=== PATIENT | female | born 1990 | race Caucasian/White ===

== ENCOUNTER 2020-07-31 10:30 | Outpatient (CLI) | payer BC, SELFPAY ==
[2020-07-31 11:05] LABS: Hematocrit 39.2 % (37.0-47.0); Hemoglobin 13.6 g/dL (12.0-15.0); Mean Corpuscular HGB Conc 34.7 g/dl (32-36); Mean Corpuscular Hemoglobin 32.3 pg (26-34); Mean Corpuscular Volume 93.1 fl (80-100); Mean Platelet Volume 11.4 fl (7.4-10.4); Platelet Count Result 156 k/mm3 (150-375); Red Blood Count 4.21 M/mm3 (4.2-5.4); Red Cell Distribution Width 13.4 % (11.5-14.5); White Blood Count 7.3 K/mm3 (4.5-10.0)
[2020-08-01 08:24] LABS: Rapid Plasma Reagin Non-Reactive (NonReactive)
== END 2020-07-31 10:31 | disposition home or self-care (01) ==
PROVIDERS: Visit Provider Obstetrics & Gynecology
DX: Z01.812 Encounter for preprocedural laboratory examination (principal)
CPT/HCPCS: 36415; 85027; 86592; 86850; 86900; 86901

== ENCOUNTER 2020-08-01 09:50 | Inpatient (IN) | payer BC, SELFPAY ==
[2020-08-01] VITALS (36 sets, daily range): BP systolic 105–131; BP diastolic 65–89; PULSE 67–92; RESP 16–18; TEMP 36.3–36.7; O2SAT 97–100; BMI 31.4
[2020-08-01] MEDS: LACTATED RINGERS 1,000 ML 125 ML IV CONT ×3 (10:37→12:45)
--- NOTE | 2020-08-01 11:11 | P.PNAN_ITS ---
Anes - Initial Pre Proc Eval Procedure: Operation Date: 08/01/20 12:00 Proposed Procedures p Repeat Section - Darryl Birmingham MD Date/Time: 08/01/20 11:11 Surgeon: Darryl Birmingham MD Pre Op Diagnosis: C/S Patient Data Age: 29 Gender: F Height: Weight: Last Vital Signs Pulse 90 08/01/20 11:00 BP 119/72 08/01/20 11:00 Allergies Allergy/AdvReac Type Severity Reaction Status Date / Time No Known Allergies Allergy Verified 07/08/20 12:40 Home Medications Medication Instructions Recorded Confirmed Type prenat.vits,toney,hxi-hzie-oryif 1 tablet PO DAILY 07/08/20 07/08/20 History [ #2] Patient hx anesthesia problems: none Family hx anesthesia problems: none [facility] Family History Family History (Updated 07/08/20 @ 12:42 by Patsy Herrera RN) Father Hypertension Social History Social History Substance use: never Spiritual care concerns: No Anes - Eval Final PreProcedure Day of Procedure 08/01/20 11:11 Patient weight: overweight Heart: regular rate and rhythm Lungs: clear to auscultation and normal air movement Airway: Mallampati scale class II Neurological: alert and oriented Last oral intake: >/= 8 hours ASA classification: II Emergent: no Anesthetic plan: proceed Anesthesia type and monitoring: regional spinal Informed Consent: The patient's anesthetic plan and its attendant risks and benefits were discussed with the patient/family/POA. Questions were solicited and answers provided to the satisfaction of the patient/family/POA.
--- NOTE | 2020-08-01 11:32 | PM.IMHP ---
H&P: HPI History of Present Illness Date/Time: 08/01/20 11:32 this patient is a 29-year-old 1 at 39 weeks gestation who presents for delivery due to an in the breech position. Review agreed to perform delivery. She understands the risks. She understands that injuries may occur that result in hospitalization, more surgery, severe illness. She understands risk of hemorrhage infection. The patient denies any nausea, vomiting, fever, chills. She denies any chest pain or shortness of breath. She denies any contractions, loss of fluid or vaginal bleeding. Chief Complaint: Breech Review of Systems Constitutional: Constitutional: Reports no additional constitutional complaints, Denies fatigue, Denies headache(s), Denies lethargy and Denies weakness Eyes: Eyes: Reports no additional eye complaints, Denies blurry vision and Denies photophobia ENT: Reports as per HPI, Denies headache(s) and Denies neck pain Cardiovascular: Cardiovascular: Denies chest pain, Denies diaphoresis, Denies leg edema, Denies palpitations and Denies dyspnea Respiratory: Respiratory: Denies hemoptysis, Denies dyspnea and Denies wheezing Gastrointestinal: Gastrointestinal: Denies abdominal pain, Denies melena, Denies bloating, Denies hematochezia, Denies nausea and Denies vomiting Genitourinary: Genitourinary: Reports no additional female genitourinary complaints Musculoskeletal: Musculoskeletal: Denies joint swelling, Denies neck pain, Denies numbness and Denies stiffness Neurologic: Denies Abnormal speech present, Denies confusion, Denies headache(s), Denies numbness and Denies weakness Psychiatric: Psychiatric: Denies anxiety, Denies confusion, Denies depression, Denies homicidal ideation and Denies suicidal ideation Endocrine: Endocrine: Denies fatigue and Denies palpitations Allergic/Immunologic: Allergic/Immunologic: Denies wheezing [facility] Family History Family History (Updated 07/08/20 @ 12:42 by Patsy Herrera RN) Father Hypertension Social History Social History Substance use: never Spiritual care concerns: No Meds Home Medications and Allergies Home Medications Medication Instructions Recorded Confirmed Type prenat.vits,toney,duk-nyxk-iefak 1 tablet PO DAILY 07/08/20 07/08/20 History [ #2] Allergies Allergy/AdvReac Type Severity Reaction Status Date / Time No Known Allergies Allergy Verified 07/08/20 12:40 Vital Signs Vital Signs - 24 hr 08/01/20 10:24 08/01/20 10:30 08/01/20 10:45 Pulse Rate 84 92 75 Blood Pressure 121/80 114/76 118/74 08/01/20 11:00 08/01/20 11:15 08/01/20 11:30 Pulse Rate 90 80 75 Blood Pressure 119/72 131/85 125/89 Exam Const: General: healthy appearing, comfortable and no acute distress; No confusion Orientation/consciousness: No confusion Eyes: Direct Ophthalmoscopy: No photophobia Resp: Auscultation: clear to auscultation bilaterally, no rales, no rhonchi and no wheezes Cardio: Rate: regular rate Heart sounds: no click, no murmurs and no rubs GI: Inspection: non-distended GI Palp: No abdominal tenderness Auscultation: normal bowel sounds Neuro: General: No confusion Speech: No Abnormal speech present Extrem: General: normal to inspection, no pedal edema and no calf tenderness Assessment and Plan Assessment and plan (1) Term : Code(s): Z34.90 - Encounter for supervision of normal , unspecified, unspecified trimester Status: Acute (2) Breech presentation: Code(s): O32.1XX0 - Maternal care for breech presentation, not applicable or unspecified Status: Acute Assessment and Plan: This patient is a 29-year-old primipara at term with a breech . We have agreed to perform delivery. She understands the risks, benefits, and alternatives. She has completed the informed consent process and is ready to proceed.
--- NOTE | 2020-08-01 11:35 | WPDHPUPDATE1 ---
History and Physical Update Update Date/Time: 08/01/20 11:35 History and Physical has been reviewed, including an updated exam of the patient. There are NO changes in the patient's condition. Risks, benefits, and alternatives have been discussed and questions answered. Patient agrees to proceed with procedure.
[2020-08-01] MEDS: ceFAZolin 2 GM/D5W 50 ML 2 GM/50 ML BAG IVPB (12:30)
--- NOTE | 2020-08-01 13:22 | W.PM.PROC2 ---
Procedure Note - Detailed Date of Procedure 08/01/20 Pre-op Diagnosis Breech, Term Post-op Diagnosis same Procedure Performed Low-transverse section Surgeon Darryl Birmingham MD Anesthesia spinal Findings Normal gestational maternal anatomy, average size infant - breech, normal Apgars. Description of Procedure The patient was taken the operating room. She was prepped and draped in dorsal supine position with a leftward tilt. This was done after spinal anesthetic was applied. A low-transverse skin incision was made and carried down till of the fascia with the knife. The fascial incision was made with the knife. The fascial incision was extended laterally with Ortega scissors. The fascia was tented upward superiorly and inferiorly the rectus muscles were dissected off bluntly. The rectus muscles were the midline. The preperitoneal fat and peritoneum were dissected open bluntly at the superior aspect of the rectus muscles. The peritoneal incision was extended superior and inferior with good position of bladder. The uterine incision was made with a scalpel down to the level of the amniotic cavity. The amniotic cavity was entered bluntly. The was delivered. The cord was clamped and cut and the infant was handed off to waiting pediatric staff. Cord bloods were obtained. The placenta was removed manually. The uterus was exteriorized. The uterus was cleared of all clots, debris and membranes. The uterus was closed in 0 Vicryl running lock fashion. An imbricating over a was placed along the incision line as well. The uterus was returned to the abdomen. The gutters were cleared of all clots and debris. The fascia was closed with 0 Vicryl running fashion. The subcutaneous tissue was irrigated pinpoint bleeders were cauterized. The skin was closed with subcuticular absorbable veronika. The skin incision line was covered with glue. The patient tolerated the procedure well. She has taken recovery room in stable condition. Sponge lap and needle counts were correct x2. Estimated Blood Loss 375 Complications No immediate complications Condition stable Disposition PACU
[2020-08-01] MEDS: ONDANSETRON INJ 4 MG/2 ML VIAL IV PUSH (14:00)
[2020-08-01] MEDS: diphenhydrAMINE HCl INJ 50 MG/ML VIAL 25 MG IV PUSH (15:14)
[2020-08-01] MEDS: OXYTOCIN 30 UNITS/NS 500 ML 30 UNITS/500 ML BAG 125 UNITS IV CONT (15:15)
--- NOTE | 2020-08-01 15:56 | PC.NURSE ---
This patient, Tiff Mack, was received from [facility] on 08/01/20 at 1556. Patient/family oriented to unit policies and routines
[2020-08-01] MEDS: KETOROLAC 30 MG/ML VIAL (*BKC) IV PUSH (16:20)
[2020-08-01] MEDS: DEXTROSE 5%/0.45% SOD CHL 1,000 ML 125 ML IV CONT (20:07)
[2020-08-02] VITALS: BP 123/65; PULSE 91; RESP 16; TEMP 37.2; O2SAT 97
[2020-08-02] MEDS: IBUPROFEN 600 MG TABLET PO ×3 (04:19→20:27)
[2020-08-02] MEDS: HYDROcodone/acetaminophen (*CRX) 10-325 MG TABLET 1 TAB PO ×3 (04:20→16:52)
[2020-08-02 05:13] VITALS: BP 116/72; PULSE 86; RESP 18; TEMP 36.3; O2SAT 98
[2020-08-02 05:19] LABS: Basophils Percent Auto 0.2 % (0.2-1.2); Eosinophils Percent Auto 0.4 % (0-4.4); Hematocrit 32.8 % (37.0-47.0); Hemoglobin 10.7 g/dL (12.0-15.0); Immature Granulocyte Absolute 0.05 K/mm3 (0.00-0.031); Immature Granulocyte Percent A 0.6 % (0-0.5); Lymphocytes Absolute Auto 0.75 K/mm3 (0.9-3.2); Lymphocytes Percent Auto 8.9 % (18.3-44.2); Mean Corpuscular HGB Conc 32.6 g/dl (32-36); Mean Corpuscular Hemoglobin 31.8 pg (26-34); Mean Corpuscular Volume 97.6 fl (80-100); Mean Platelet Volume 11.5 fl (7.4-10.4); Monocytes Absolute Auto 0.8 K/mm3 (0.1-0.6); Neutrophils Absolute Auto 6.8 K/mm3 (1.3-6.7); Neutrophils Percent Auto 80.9 % (45.5-73.1); Platelet Count Result 127 k/mm3 (150-375); Red Blood Count 3.36 M/mm3 (4.2-5.4); Red Cell Distribution Width 13.7 % (11.5-14.5); White Blood Count 8.4 K/mm3 (4.5-10.0)
[2020-08-02 08:00] VITALS: BP 124/77; PULSE 79; RESP 16; TEMP 37.1; O2SAT 96
--- NOTE | 2020-08-02 09:45 | PM.OBPNVD ---
OB - PN: Subj Subjective Date/time seen: 08/02/20 09:45 Patient comments: no complaints, pain well controlled, tolerating diet and flatus present [place] baby status: doing well OB - PN: Obj Data Labs CBC & Chem 7: 08/02/20 04:25 Labs: Laboratory Results - last 24 hr 08/02/20 04:25 WBC 8.4 RBC 3.36 L Hgb 10.7 L Hct 32.8 L MCV 97.6 MCH 31.8 MCHC 32.6 RDW 13.7 Plt Count 127 L MPV 11.5 H Immature Gran % (Auto) 0.6 H Neut % (Auto) 80.9 H Lymph % (Auto) 8.9 L [place] % (Auto) 9.0 H Eos % (Auto) 0.4 Baso % (Auto) 0.2 Lymph # (Auto) 0.75 L [place] # (Auto) 0.8 H Eos # (Auto) 0.0 Baso # (Auto) 0.0 Abs Immat Gran (auto) 0.05 H Absolute Neuts (auto) 6.8 H Absolute Nucleated RBC 0.0 Nucleated RBC % 0.0 OB - PN A/P Plan day: 1 Plan: routine care Comments: Recheck platelets tomorrow morning. Time Spent With Patient Time: Total time spent is greater than 50% in coordination of care (as documented) at patient's floor/unit and/or counseling patient: Time with patient: less than 15 minutes Review of Systems Review of Systems: All systems reviewed & are unremarkable except as noted in HPI and below Exam Narrative: Exam Narrative: Fundus firm. Vaginal flow controlled. Incision dry and intact. Negative homans. No redness, warmth, or pain of lower ext. Const: General: comfortable Chest: Breast/axilla inspection: normal inspection of the breasts Resp: Effort & Inspection: normal respiratory effort Auscultation: clear to auscultation bilaterally Cardio: Rate: regular rate GI: GI Palp: Yes Soft to palpation Psych: Appearance: grossly normal Affect: normal affect Attitude: cooperative Thought content: Yes Normal thought content present Judgement: Good judgement present (Psych)
[2020-08-02] MEDS: DOCUSATE SODIUM 100 MG CAPSULE PO ×2 (09:47→16:52)
[2020-08-02] MEDS: MULTIVIT/MIN/PREN/FOL AC/IRON TABLET 1 TAB PO (09:47)
[2020-08-02] MEDS: SIMETHICONE 80 MG TAB.CHEW PO ×4 (10:02→20:27)
[2020-08-02 12:00] VITALS: BP 124/84; PULSE 92; RESP 16; TEMP 37.2; O2SAT 98
[2020-08-02] MEDS: HYDROcodone/acetaminophen (*CRX) 5-325 MG TABLET 1 TAB PO ×2 (12:44→20:27)
--- NOTE | 2020-08-02 13:32 | WPDANLDPN2 ---
Anes-Prog Note L&D Date/Time: 08/02/20 13:32 Comfortable throughout: section Neuraxial method: spinal Epidural/Spinal procedure site: clean & non-tender Neuro status: Neuro function grossly intact. Cardiovascular status: normal Respiratory status: normal Airway patency: baseline Mental status: baseline Post-Op hydration status: normal Vital Signs: Last Vital Signs Temp 37.2 C 08/02/20 12:00 Pulse 92 08/02/20 12:00 Resp 16 08/02/20 12:00 BP 124/84 08/02/20 12:00 Pulse Ox 98 08/02/20 12:00 Pain score (VAS): 0 I/O: Intake & Output 08/01/20 08/02/20 08/02/20 23:59 07:59 15:59 Intake Total 240 Balance 240 Post-procedural complaints: none Patient feedback: Patient satisfied with anesthetic care.
--- NOTE | 2020-08-02 13:33 | WPDANLDNPN2 ---
Anes-Prog Note L&D-Neuraxial Date/Time: 08/02/20 13:33 Neuraxial medications: intrathecal PF morphine Opiod-related complaints: none Patient feedback: Patient satisfied with post-operative pain management.
[2020-08-02 19:03] VITALS: BP 127/82; PULSE 87; RESP 16; TEMP 36.7; O2SAT 99
[2020-08-03] MEDS: IBUPROFEN 600 MG TABLET PO ×4 (02:34→22:56)
[2020-08-03] MEDS: HYDROcodone/acetaminophen (*CRX) 5-325 MG TABLET 1 TAB PO ×2 (02:35→22:56)
[2020-08-03] MEDS: HYDROcodone/acetaminophen (*CRX) 10-325 MG TABLET 1 TAB PO ×5 (05:08→19:16)
[2020-08-03 06:41] LABS: Mean Platelet Volume 11.3 fl (7.4-10.4); Platelet Count Result 169 k/mm3 (150-375)
[2020-08-03] MEDS: DOCUSATE SODIUM 100 MG CAPSULE PO ×2 (07:49→15:16)
[2020-08-03] MEDS: SIMETHICONE 80 MG TAB.CHEW PO (07:49)
[2020-08-03 07:50] VITALS: BP 122/78; PULSE 88; RESP 16; TEMP 36.6; O2SAT 98
--- NOTE | 2020-08-03 09:27 | P.PNOB_ITS ---
OB - PN: Subj Subjective Date/time seen: 08/03/20 09:27 Patient comments: no complaints, pain well controlled, tolerating diet and flatus present [place] baby status: doing well OB - PN: Obj Data Labs CBC & Chem 7: 08/03/20 05:07 Labs: Laboratory Results - last 24 hr 08/03/20 05:07 Plt Count 169 MPV 11.3 H OB - PN A/P Plan day: 2 Plan: routine care Time Spent With Patient Time: Total time spent is greater than 50% in coordination of care (as documented) at patient's floor/unit and/or counseling patient: Time with patient: less than 15 minutes Review of Systems Review of Systems: All systems reviewed & are unremarkable except as noted in HPI and below Exam Narrative: Exam Narrative: Fundus firm. Vaginal flow controlled. Incision dry and intact. Negative homans. No redness, warmth, or pain of lower ext. Const: General: comfortable Chest: Breast/axilla inspection: normal inspection of the breasts Resp: Effort & Inspection: normal respiratory effort Auscultation: clear to auscultation bilaterally Cardio: Rate: regular rate GI: GI Palp: Yes Soft to palpation Psych: Appearance: grossly normal Affect: normal affect Attitude: cooperative Thought content: Yes Normal thought content present Judgement: Good judgement present (Psych)
[2020-08-03 20:00] VITALS: BP 131/82; PULSE 72; RESP 18; TEMP 36.9; O2SAT 98
[2020-08-04] MEDS: HYDROcodone/acetaminophen (*CRX) 5-325 MG TABLET 1 TAB PO ×3 (02:19→08:53)
[2020-08-04] MEDS: SIMETHICONE 80 MG TAB.CHEW PO (05:24)
[2020-08-04] MEDS: IBUPROFEN 600 MG TABLET PO (05:24)
--- NOTE | 2020-08-04 07:48 | PM.OBPNVD ---
OB - PN: Subj Subjective Date/time seen: 08/04/20 07:48 Patient comments: no complaints, pain well controlled, incisional pain, tolerating diet and flatus present OB - PN: Obj Data Labs CBC & Chem 7: 08/03/20 05:07 OB - PN A/P Plan day: 3 Plan: routine care, discharge home and other Comments: Incision check in one week. Given precautions Time Spent With Patient Time: Total time spent is greater than 50% in coordination of care (as documented) at patient's floor/unit and/or counseling patient: Exam Const: General: comfortable, no acute distress and alert Resp: Effort & Inspection: normal respiratory effort Auscultation: no crackles, no rales and no rhonchi Cardio: Rate: regular rate Heart sounds: no click, no murmurs and no rubs GI: Inspection: non-distended GI Palp: No Tenderness to palpation present (GI) Auscultation: normal bowel sounds Other: Incision - CDI Extrem: General: normal to inspection, no pedal edema and no calf tenderness
--- NOTE | 2020-08-04 07:49 | PM.OBDSVD ---
DS: Admitting Diagnosis Admitting Diagnosis Admitting Diagnosis: Breech term DS: Discharge Diagnosis Discharge Diagnosis (1) Breech presentation: Qualifiers: Fetus number: single or unspecified fetus Qualified Code(s): O32.1XX0 - Maternal care for breech presentation, not applicable or unspecified Code(s): O32.1XX0 - Maternal care for breech presentation, not applicable or unspecified Status: Acute (2) Term : Code(s): Z34.90 - Encounter for supervision of normal , unspecified, unspecified trimester Status: Acute OB - DS: Summary OB Procedures : None OB Procedures Intrapartum: OB Procedures: : None Peripartum Data Infant Delivery Method: Section Procedures: Procedures Operation Date: 08/01/20 12:00 Actual Procedure Side Surgeon p Section Not Applicable Darryl Birmingham MD complications: none Status at Discharge Functional status at discharge: independent ambulation Time Spent with Patient Time attestation: Total time spent providing and/or coordinating discharge services: Discharge Plan Discharge Attending physician on discharge: Darryl Birmingham Discharging Clinician: Darryl Birmingham Patient Disposition: Home, Self-Care Activity: pelvic rest Diet: regular Patient Instructions: Antibiotic Form Stand Alone Forms: General Discharge Information Follow-up/Referrals: Darryl Birmingham MD [Physician] - Discharge Medications: New oxycodone-acetaminophen 5-325 mg tablet 1 tablet PO Q4H PRN (Reason: pain) Qty: 25 RF: 0 Continued #2 Tablet 1 tablet PO DAILY RF: 0 Date of admission: 08/01/20 09:50 Primary Care Provider: PHYSICIAN,DIRECTOR OF PATIENT FINANCIAL SERVICES Admitting Provider: Darryl Birmingham Attending physician on admission: Darryl Birmingham Condition: Stable
[2020-08-04 08:35] VITALS: BP 126/83; PULSE 69; RESP 16; TEMP 37.1; O2SAT 98
[2020-08-04] MEDS: DOCUSATE SODIUM 100 MG CAPSULE PO (08:52)
--- NOTE | 2020-08-04 09:00 | PC.NURSE ---
Patient viewed the discharge video Mother & Baby Care, The First Two Weeks . Patient was given the opportunity and encouraged to ask questions. Patient verbalized understanding of information shared and has been given the mother/baby guide for home reference.
--- NOTE | 2020-08-04 11:15 | PC.NURSE ---
Consult with pt., mother reports tenderness to nipples with feeding. Skin is intact bilat. Mother states she is pumping at times due to sleepiness at breast and will supplement EBM/formula for most feedings. Observed mother latching infant in cradle with shallow latch. Reviewed signs of a deep latch vs shallow, requested mother break latch. Reviewed positioning/alignment in cross cradle, holding breast in C and guided asymmetrical latch on. was able to latch correctly with first attempt. Infant nursed eagerly, with steady draws and frequent swallowing noted. Infant would slip to shallow latch with pausing, mother reports tenderness. Demonstrated how to adjust latch more deeply while feeding. Suggested mother stimulate while feeding to increase stimulate, increase intake and to assist with maintaining deep latch. Mother reports she can feel change in latch and has no tenderness. Nipple care reviewed of lanolin after feedings, warm compresses as needed. Advised mother if infant will nurse as this observed feeding, supplement is not required and a choice by her. Discussed increasing supplementation as desires, with increased supplementation may go for 4 hours between feedings if having required output. If is exclusively breastfed infant should b e fed on demand or every three hours to satisfaction. Discussed signs when infant may be ready to decrease/discontinue supplementation, suggested mother see ICP or LC for pre/post weight feeding evaluation before supplement is discontinued. Mother is able to independently latch infant with appropriate positioning/alignment. She is feeding as required and waking infant to feed if needed. has had at least 7 effective feedings in the past 24 hours, and is currently meeting outcomes for weight, output, jaundice and feeding frequencies. Mother states she feels confident to continue current feeding plan at home. Reviewed transition to breast milk, signs of adequate intake, and engorgement/relief. Instructed to call ICP if intake/output less than required. Reviewed regular medications mother is taking. Information provided per [facility]. Reviewed community resources on the [facility] website and in the Mom/Baby guide. Information on outpatient services provided. Mother has no further questions at this time.
[2020-08-07 10:39] VITALS: BP 130/86; PULSE 81; RESP 20; TEMP 37.2; O2SAT 100
== END 2020-08-04 12:20 | disposition home or self-care (01) | DRG 788 ==
LOC: ANHOBPP 09:53 → ANHOB2 15:58
PROVIDERS: Advanced Practice Midwife; Admitting Provider Obstetrics & Gynecology; Visit Provider Obstetrics & Gynecology
PROC: 10D00Z1 Extraction of Products of Conception, Low, Open Approach (ICD-10-PCS; CPT 59514; principal; 2020-08-01 12:00)
DX: O32.1XX0 Maternal care for breech presentation, not applicable or unspecified (principal); Z3A.39 39 weeks gestation of pregnancy; Z37.0 Single live birth
CPT/HCPCS: 36415; 85025; 85027; 85049; 86592; 86850; 86900; 86901; A9270; J0131; J0690; J1200; J1885; J2175; J2274; J2405; J2590; J7120

== ENCOUNTER 2021-10-07 12:33 | Outpatient (CLI) | payer BC, SELFPAY ==
--- NOTE | 2021-10-08 09:48 | WPDNEUROLOGY ---
Neurology EEG Report General Information Date of Study: 10/07/21 TEST eeg DIAGNOSIS Altered mental status CONDITION OF RECORDING awake drowsy and sleep EEG NUMBER [id number] CLINICAL HISTORY patient reports she has been having episodes of zoning out for 30+ seconds has been happening for a few years. Feels fine before and after. EEG DESCRIPTION Basic resting occipital frequency consists of well-organized low to medium voltage 9 to 11 hertz per 2nd alpha admixed with low-voltage 15 to 18 hertz per 2nd beta. During drowsiness low-voltage beta activity seen diffusely admixed with waxing and waning posterior alpha rhythm. Bilateral symmetrical sleep activity seen during sleep. Hyperventilation not done. Photic stimulation produced normal drive. Non paroxysmal. Nonfocal. Nonlateralizing. IMPRESSION Normal record
== END 2021-10-07 12:34 | disposition home or self-care (01) ==
LOC: ANHNEURO 12:34
PROVIDERS: Visit Provider Family Medicine Adolescent Medicine
DX: R41.82 Altered mental status, unspecified (principal)
CPT/HCPCS: 95816

== ENCOUNTER → 2022-02-17 09:10 | Outpatient (CLI) | payer BC, SELFPAY ==
--- NOTE | ~2022-02-17 | CT_ITS ---
Pre and Postcontrast Head CT History: Altered mental status Technique: Axial imaging of the brain was performed prior to and following intravenous injection of 1 00 cc of Omnipaque 350 contrast material. Sagittal and coronal reformatted images were constructed. D ose reduction technique was used on this scan by utilizing automated exposure control and iterative r econstruction technique. The dose-length product (DLP) was 1199.14 mGy-cm. Findings: There is no evidence of intracranial hemorrhage, mass lesion, or acute infarct. Brain par enchyma appears normal. The ventricles and subarachnoid spaces are normal in size. The calvarium ap pears normal. The visualized paranasal sinuses and mastoid air cells are clear. No abnormal postcontrast enhancement. Impression: No significant abnormality seen. Reviewed, dictated and finalized at [facility]. F DEPUTY CORONER Impression: No significant abnormality seen.
== END ==
PROVIDERS: PCP Obstetrics & Gynecology; Visit Provider Obstetrics & Gynecology
DX: R41.82 Altered mental status, unspecified (principal)
CPT/HCPCS: 70470; Q9967

== ENCOUNTER → 2022-03-03 07:46 | Outpatient (CLI) | payer BC, SELFPAY ==
--- NOTE | ~2022-03-03 | US_ITS ---
EXAMINATION: US thyroid DATE: 03/03/2022 08:29 INDICATION: Goiter TECHNIQUE: Multiple ultrasound images of the thyroid were obtained. COMPARISON: None. FINDINGS: The right thyroid lobe measures 6.2 x 1.5 x 1.6 cm. The left thyroid lobe measures 5.1 x 1.1 x 4.4 c m. Thyroid isthmus measures 2 mm in thickness. No discrete nodules identified. There is normal echote xture, echogenicity and vascular flow throughout the thyroid gland. IMPRESSION: 1. Normal thyroid ultrasound. Reviewed, dictated and finalized at location A. [employer]
== END ==
PROVIDERS: PCP Internal Medicine Endocrinology, Diabetes & Metabolism; Visit Provider Internal Medicine Endocrinology, Diabetes & Metabolism
DX: E04.9 Nontoxic goiter, unspecified (principal)
CPT/HCPCS: 76536